=== PATIENT | male | born 1995 | race Caucasian/White ===

== ENCOUNTER 2018-06-30 21:44 | Emergency (ER) | payer MEDICAID ==
[~2018-06-30] VITALS: Ht 165.1 cm; Wt 75.0 kg
[2018-06-30] MEDS ORDERED: MORPHINE SULFATE 4 MG/ML CPJ (NOT FOR IM USE) IV STA (22:29)
[2018-06-30] MEDS ORDERED: ONDANSETRON HCL 4MG/2ML INJ IV STA (22:29)
[2018-06-30] MEDS ORDERED: SODIUM CHLORIDE 0.9% 1,000 ML IV ONE (22:29)
[2018-06-30] MEDS ORDERED: PROPOFOL 200MG/20ML VIAL IV ONE (23:00)
[2018-06-30] MEDS ORDERED: FENTANYL CITRATE/PF 50MCG/ML 2ML VIAL IV ONE (23:15)
[2018-07-01] MEDS ORDERED: SODIUM CHLORIDE 0.9% 1,000 ML IV ONE (00:15)
[2018-07-01] MEDS ORDERED: PROPOFOL 200MG/20ML VIAL IV ONE (00:15)
[2018-07-01 01:43] VITALS: BP 126/70
== END 2018-07-01 03:11 | disposition home or self-care (01) ==
LOC: ER 22:11
DX: S82.491A Other fracture of shaft of right fibula, initial encounter for closed fracture (principal); X58.XXXA Exposure to other specified factors, initial encounter; Y93.66 Activity, soccer; Y92.89 Other specified places as the place of occurrence of the external cause; Y99.8 Other external cause status
CPT/HCPCS: 27825; 73560; 73600; 73610; 96374; 96375; 96376; 99285; J2270; J2405; J2704; J3010; J7030; Z7610